=== PATIENT | male | born 1945 | race Caucasian/White ===

== ENCOUNTER 2017-11-29 11:54 | Inpatient (IN) | payer MEDICARE ==
[~2017-11-29] VITALS: Ht 177.8 cm; Wt 90.7 kg
[~2017-11-29 11:54] MED LIST: AMLO5TAB2 PO; ATOR10 PO; LOSA100T29 PO; METO50TA18 PO; TAMS0.4C32 PO
[2017-11-29] MEDS ORDERED: SODIUM CHLORIDE 0.9% 1000ML 1,000 ML IV ONE ×3 (12:25→15:24)
[2017-11-29] MEDS ORDERED: ONDANSETRON HCL 4 MG/2 ML VIAL ONE ×2 (12:26→13:25)
[2017-11-29] MEDS ORDERED: MORPHINE SULFATE 4 MG/1ML SYG ONE (12:27)
[2017-11-29 12:45] LABS: ALBUMIN 3.5 g/dL (3.5-5.0); BILIRUBIN,TOTAL 1.9 mg/dL (0.2-1.0); TOTAL PROTEIN, SERUM 6.9 g/dL (6.0-8.3)
[2017-11-29 13:01] LABS: BASOPHILS % (AUTO) 0.4 % (0.0-5.0); EOSINOPHILS % (AUTO) 0.2 % (0.0-8.0); HEMATOCRIT 44.9 % (42-54); LYMPHOCYTES % (AUTO) 2.2 % (21.0-51.0); MEAN CORPUSCULAR HEMOGLOBIN 28.1 pg (27.0-33.0); MEAN CORPUSCULAR HGB CONC 32.9 g/dL (32.0-36.0); MEAN CORPUSCULAR VOLUME 85.6 fL (79-99); NEUTROPHILS % (AUTO) 93.2 % (40.0-77.0); PLATELET COUNT (AUTO) 225 K/uL (130-400); RED BLOOD CELL COUNT(AUTO) 5.25 MIL/uL (4.50-6.20); RED CELL DISTRIBUTION WIDTH 14.6 % (11.0-15.5); WHITE BLOOD COUNT (AUTO) 11.6 K/uL (4.8-10.8)
[2017-11-29] MEDS ORDERED: HYDROMORPHONE HCL 2 MG/ML VIAL ONE (13:26)
[2017-11-29] MEDS ORDERED: ACETAMINOPHEN-CODEINE 300/30MG TAB PO PRN ×2 (15:00)
[2017-11-29] MEDS ORDERED: GUAIFENESIN-DM 200/20 MG 10 ML PO PRN (15:00)
[2017-11-29] MEDS ORDERED: HYDRALAZINE HCL 20 MG/ML VIAL IV PRN (15:00)
[2017-11-29] MEDS ORDERED: NITROGLYCERIN 0.4 MG SL TAB SL PRN (15:00)
[2017-11-29] MEDS: LEVOFLOXACIN 500 MG/D5W 100 ML 100 ML IV SCH (15:00)
[2017-11-29] MEDS ORDERED: ONDANSETRON HCL 4 MG/2 ML VIAL IV PRN (15:00)
[2017-11-29] MEDS ORDERED: MAG HYDROX/AL HYDROX/SIMETH ES 30 ML SUSP UDCUP PO PRN (15:00)
[2017-11-29] MEDS ORDERED: ACETAMINOPHEN 325 MG TAB PO PRN ×2 (15:00)
[2017-11-29 15:23] LABS: APPEARANCE,URINE Clear (CLEAR); BILIRUBIN,URINE Negative (NEGATIVE); COLOR,URINE Yellow (YELLOW); GLUCOSE, URINE (UA) Negative (NEGATIVE); KETONES,URINE Negative (NEGATIVE); LEUKOCYTE ESTERASE ,URINE Negative (NEGATIVE); NITRATE,URINE Negative (NEGATIVE); OCCULT BLOOD,URINE Negative (NEGATIVE); PROTEIN,URINE Negative (NEGATIVE)
[2017-11-29] MEDS ORDERED: LEVOFLOXACIN 500 MG/D5W 100 ML 100 ML ONE (15:25)
[2017-11-29 17:57] VITALS: BP 134/66
[2017-11-29] MEDS: SODIUM CHLORIDE 0.9% 1000ML 1,000 ML IV SCH ×2 (17:57→20:57)
[2017-11-29] MEDS ORDERED: METF-526 PO (18:49)
[2017-11-29] MEDS ORDERED: CARB-101 PO (18:49)
[2017-11-29] MEDS: FAMOTIDINE/PF 20 MG/2 ML VIAL IV SCH (19:55)
[2017-11-29] MEDS: MORPHINE SULFATE 4 MG/1ML SYG IV PRN (19:55)
[2017-11-29 20:01] VITALS: BP 129/64
[2017-11-29] MEDS: IPRATROPIUM/ALBUTEROL SULFATE 3 ML SOLUTION IH SCH (22:00)
[2017-11-30] VITALS: BP 123/59
[2017-11-30] MEDS: MORPHINE SULFATE 4 MG/1ML SYG IV PRN ×5 (02:04→19:59)
[2017-11-30 04:00] VITALS: BP 142/66
[2017-11-30] MEDS: SODIUM CHLORIDE 0.9% 1000ML 1,000 ML IV SCH ×3 (04:33→19:58)
[2017-11-30 04:57] LABS: HEMATOCRIT 37.8 % (42-54); MEAN CORPUSCULAR HEMOGLOBIN 29.8 pg (27.0-33.0); MEAN CORPUSCULAR HGB CONC 34.7 g/dL (32.0-36.0); MEAN CORPUSCULAR VOLUME 85.9 fL (79-99); PLATELET COUNT (AUTO) 209 K/uL (130-400); RED CELL DISTRIBUTION WIDTH 14.6 % (11.0-15.5); WHITE BLOOD COUNT (AUTO) 12.5 K/uL (4.8-10.8)
[2017-11-30 05:17] LABS: ALBUMIN 2.8 g/dL (3.5-5.0); CREATININE 0.9 mg/dL (0.5-1.5); POTASSIUM 3.6 mmol/L (3.5-5.1); TOTAL PROTEIN, SERUM 5.9 g/dL (6.0-8.3)
[2017-11-30] MEDS: IPRATROPIUM/ALBUTEROL SULFATE 3 ML SOLUTION IH SCH ×3 (06:19→22:06)
[2017-11-30] MEDS: CARBIDOPA-LEVODOPA 25-100 TAB PO SCH ×3 (06:48→16:54)
[2017-11-30 07:30] VITALS: BP 150/72
[2017-11-30] MEDS: FAMOTIDINE/PF 20 MG/2 ML VIAL IV SCH ×2 (08:44→19:57)
[2017-11-30] MEDS ORDERED: POTASSIUM CHLORIDE 20MEQ/100ML 100 ML IV PRN (10:00)
[2017-11-30] MEDS ORDERED: LIDOCAINE HCL-MPF 1% 2ML VIAL IVP PRN (10:00)
[2017-11-30] MEDS ORDERED: POTASSIUM CHLORIDE 10% ELIXIR 20 MEQ/15 ML UDCUP PO PRN (10:00)
[2017-11-30 11:00] VITALS: BP 145/71
[2017-11-30] MEDS: INSULIN HUMULIN R 100 UNIT/ML 3ML SQ SCH ×2 (11:30→21:00)
[2017-11-30] MEDS: POTASSIUM CHLORIDE 20 MEQ ERTAB PO PRN ×2 (11:43→15:40)
[2017-11-30] MEDS: LEVOFLOXACIN 500 MG/D5W 100 ML 100 ML IV SCH (15:07)
[2017-11-30 16:00] VITALS: BP 145/73
[2017-11-30] MEDS: METOPROLOL TARTRATE 50 MG TAB PO SCH (19:57)
[2017-11-30] MEDS: TAMSULOSIN HCL 0.4 MG CAP.ER.24H PO SCH (19:57)
[2017-11-30 20:25] VITALS: BP 134/64
[2017-12-01 00:07] VITALS: BP 147/74
[2017-12-01] MEDS: MORPHINE SULFATE 2 MG/ML 1ML SYG IV PRN ×4 (03:18→18:33)
[2017-12-01 04:33] LABS: HEMATOCRIT 36.7 % (42-54); MEAN CORPUSCULAR HEMOGLOBIN 29.1 pg (27.0-33.0); MEAN CORPUSCULAR VOLUME 85.6 fL (79-99); PLATELET COUNT (AUTO) 177 K/uL (130-400); RED BLOOD CELL COUNT(AUTO) 4.29 MIL/uL (4.50-6.20); RED CELL DISTRIBUTION WIDTH 15.1 % (11.0-15.5); WHITE BLOOD COUNT (AUTO) 10.2 K/uL (4.8-10.8)
[2017-12-01 04:39] VITALS: BP 165/70
[2017-12-01 04:44] LABS: ALBUMIN 2.4 g/dL (3.5-5.0); BILIRUBIN,DIRECT 0.3 mg/dL (0.0-0.3); BILIRUBIN,TOTAL 1.5 mg/dL (0.2-1.0); TOTAL PROTEIN, SERUM 5.5 g/dL (6.0-8.3)
[2017-12-01] MEDS: SODIUM CHLORIDE 0.9% 1000ML 1,000 ML IV SCH ×2 (05:35→17:02)
[2017-12-01] MEDS: INSULIN HUMULIN R 100 UNIT/ML 3ML SQ SCH ×4 (05:35→21:00)
[2017-12-01] MEDS: IPRATROPIUM/ALBUTEROL SULFATE 3 ML SOLUTION IH SCH ×3 (06:05→22:13)
[2017-12-01] MEDS: CARBIDOPA-LEVODOPA 25-100 TAB PO SCH ×3 (06:24→16:28)
[2017-12-01 07:48] VITALS: BP 146/78
[2017-12-01] MEDS: FAMOTIDINE/PF 20 MG/2 ML VIAL IV SCH ×2 (08:28→19:41)
[2017-12-01] MEDS: METOPROLOL TARTRATE 50 MG TAB PO SCH ×2 (08:28→19:41)
[2017-12-01] MEDS: AMLODIPINE BESYLATE 5 MG TAB PO SCH (08:28)
[2017-12-01] MEDS: TAMSULOSIN HCL 0.4 MG CAP.ER.24H PO SCH ×2 (08:28→19:41)
[2017-12-01] MEDS: POTASSIUM CHLORIDE 20 MEQ ERTAB PO PRN ×2 (08:28→12:47)
[2017-12-01] MEDS: ENOXAPARIN SODIUM 30 MG/0.3 ML SQ SCH (08:29)
[2017-12-01 09:46] LABS: CREATININE 0.8 mg/dL (0.5-1.5)
[2017-12-01 10:09] LABS: POTASSIUM 3.7 mmol/L (3.5-5.1)
[2017-12-01 12:00] VITALS: BP 145/73
[2017-12-01 12:34] LABS: AMYLASE 175 U/L (25-115)
[2017-12-01 12:35] LABS: LIPASE 337 U/L (114-286)
[2017-12-01] MEDS: LEVOFLOXACIN 500 MG/D5W 100 ML 100 ML IV SCH (14:17)
[2017-12-01 16:00] VITALS: BP 144/77
[2017-12-01] MEDS: LACTULOSE 20 GM/30 ML UDCUP PO PRN (18:47)
[2017-12-01 20:35] VITALS: BP 151/70
[2017-12-02] VITALS (7 sets, daily range): BP systolic 156–173; BP diastolic 66–77
[2017-12-02] MEDS: SODIUM CHLORIDE 0.9% 1000ML 1,000 ML IV SCH (03:18)
[2017-12-02] MEDS: MORPHINE SULFATE 2 MG/ML 1ML SYG IV PRN ×2 (03:45→11:17)
[2017-12-02] MEDS: IPRATROPIUM/ALBUTEROL SULFATE 3 ML SOLUTION IH SCH ×3 (05:09→21:35)
[2017-12-02 05:24] LABS: CREATININE 0.8 mg/dL (0.5-1.5); POTASSIUM 3.6 mmol/L (3.5-5.1)
[2017-12-02] MEDS: CARBIDOPA-LEVODOPA 25-100 TAB PO SCH ×3 (06:33→17:03)
[2017-12-02] MEDS: POTASSIUM CHLORIDE 20 MEQ ERTAB PO PRN ×2 (06:34→07:49)
[2017-12-02] MEDS: INSULIN HUMULIN R 100 UNIT/ML 3ML SQ SCH ×4 (06:34→21:00)
[2017-12-02] MEDS: FAMOTIDINE/PF 20 MG/2 ML VIAL IV SCH ×2 (07:49→20:03)
[2017-12-02] MEDS: TAMSULOSIN HCL 0.4 MG CAP.ER.24H PO SCH ×2 (07:49→20:02)
[2017-12-02] MEDS: METOPROLOL TARTRATE 50 MG TAB PO SCH ×2 (07:49→20:03)
[2017-12-02] MEDS: ENOXAPARIN SODIUM 30 MG/0.3 ML SQ SCH (07:51)
[2017-12-02] MEDS: AMLODIPINE BESYLATE 5 MG TAB PO SCH (07:52)
[2017-12-02] MEDS: LACTULOSE 20 GM/30 ML UDCUP PO PRN (17:04)
[2017-12-02] MEDS: LOSARTAN 100 MG TABLET PO SCH (20:02)
[2017-12-02] MEDS: ATORVASTATIN CALCIUM 10 MG TABLET PO SCH (20:02)
[2017-12-03] VITALS (25 sets, daily range): BP systolic 134–173; BP diastolic 55–83
[2017-12-03] MEDS: IPRATROPIUM/ALBUTEROL SULFATE 3 ML SOLUTION IH SCH ×3 (04:54→22:10)
[2017-12-03 05:07] LABS: BASOPHILS % (AUTO) 0.2 % (0.0-5.0); EOSINOPHILS % (AUTO) 1.2 % (0.0-8.0); HEMATOCRIT 38.6 % (42-54); LYMPHOCYTES % (AUTO) 3.9 % (21.0-51.0); MEAN CORPUSCULAR HEMOGLOBIN 28.9 pg (27.0-33.0); MEAN CORPUSCULAR HGB CONC 34.3 g/dL (32.0-36.0); MEAN CORPUSCULAR VOLUME 84.2 fL (79-99); MONOCYTES % (AUTO) 12.4 % (3.0-13.0); NEUTROPHILS % (AUTO) 82.3 % (40.0-77.0); PLATELET COUNT (AUTO) 200 K/uL (130-400); RED BLOOD CELL COUNT(AUTO) 4.58 MIL/uL (4.50-6.20); RED CELL DISTRIBUTION WIDTH 14.8 % (11.0-15.5); WHITE BLOOD COUNT (AUTO) 8.7 K/uL (4.8-10.8)
[2017-12-03 05:17] LABS: CREATININE 0.7 mg/dL (0.5-1.5); POTASSIUM 3.5 mmol/L (3.5-5.1)
[2017-12-03] MEDS: CARBIDOPA-LEVODOPA 25-100 TAB PO SCH ×3 (06:41→17:00)
[2017-12-03] MEDS: INSULIN HUMULIN R 100 UNIT/ML 3ML SQ SCH ×4 (06:42→21:00)
[2017-12-03] MEDS: METOPROLOL TARTRATE 50 MG TAB PO SCH ×2 (07:36→20:53)
[2017-12-03] MEDS: ENOXAPARIN SODIUM 30 MG/0.3 ML SQ SCH (08:04)
[2017-12-03] MEDS: FAMOTIDINE/PF 20 MG/2 ML VIAL IV SCH ×2 (09:00→20:53)
[2017-12-03] MEDS: TAMSULOSIN HCL 0.4 MG CAP.ER.24H PO SCH ×2 (09:00→20:53)
[2017-12-03] MEDS ORDERED: FENTANYL CITRATE PF 50 MCG/1 ML 2ML VIAL ONE (10:09)
[2017-12-03] MEDS: SODIUM CHLORIDE 0.9% 1000ML 1,000 ML IV SCH (10:53)
[2017-12-03] MEDS ORDERED: ACETAMINOPHEN-CODEINE 300/30MG TAB PO PRN (11:00)
[2017-12-03] MEDS ORDERED: MEPERIDINE-PF 50 MG/ML SYG ONE (11:09)
[2017-12-03] MEDS: AMLODIPINE BESYLATE 5 MG TAB PO SCH (13:59)
[2017-12-03] MEDS: ATORVASTATIN CALCIUM 10 MG TABLET PO SCH (20:53)
[2017-12-03] MEDS: LOSARTAN 100 MG TABLET PO SCH (20:53)
[2017-12-04] VITALS: BP 152/76
[2017-12-04 04:00] VITALS: BP 160/79
[2017-12-04] MEDS: IPRATROPIUM/ALBUTEROL SULFATE 3 ML SOLUTION IH SCH ×2 (06:07→13:12)
[2017-12-04] MEDS: INSULIN HUMULIN R 100 UNIT/ML 3ML SQ SCH ×2 (06:21→11:30)
[2017-12-04] MEDS: CARBIDOPA-LEVODOPA 25-100 TAB PO SCH ×2 (06:46→11:45)
[2017-12-04] MEDS: SODIUM CHLORIDE 0.9% 1000ML 1,000 ML IV SCH (06:52)
[2017-12-04 08:00] VITALS: BP 165/78
[2017-12-04] MEDS: FAMOTIDINE/PF 20 MG/2 ML VIAL IV SCH (08:35)
[2017-12-04] MEDS: AMLODIPINE BESYLATE 5 MG TAB PO SCH (08:35)
[2017-12-04] MEDS: METOPROLOL TARTRATE 50 MG TAB PO SCH (08:35)
[2017-12-04] MEDS: TAMSULOSIN HCL 0.4 MG CAP.ER.24H PO SCH (08:35)
[2017-12-04] MEDS: ENOXAPARIN SODIUM 30 MG/0.3 ML SQ SCH (08:38)
[2017-12-04] MEDS ORDERED: ACET1TAB12 PO (08:58)
[2017-12-04 09:55] LABS: APPEARANCE,URINE Clear (CLEAR); BILIRUBIN,URINE Negative (NEGATIVE); COLOR,URINE Yellow (YELLOW); GLUCOSE, URINE (UA) Negative (NEGATIVE); KETONES,URINE >=80 mg/dL (NEGATIVE); LEUKOCYTE ESTERASE ,URINE Moderate (NEGATIVE); NITRATE,URINE Negative (NEGATIVE); OCCULT BLOOD,URINE Negative (NEGATIVE); PH,URINE 5.5 (5.0-8.0); PROTEIN,URINE Negative (NEGATIVE)
[2017-12-04 10:18] LABS: RBC,URINE None Seen /HPF (0-1)
[2017-12-04 10:19] LABS: BACTERIA,URINE Few /HPF (None Seen); SQUAMOUS EPITHELIAL CELL,UR None Seen /LPF (0-2); WBC,URINE 26-50 /HPF (0-1)
[2017-12-04 11:00] VITALS: BP 160/79
== END 2017-12-04 15:42 | disposition home or self-care (01) | DRG 417 ==
LOC: EDH 11:54 → EDHIP 14:57 → 4CH 17:33 → 4BH 19:45 → UNDODISIN 12-01 08:30
PROVIDERS: ADMIT Internal Medicine; ATTEND Internal Medicine
PROC: 0FT44ZZ Resection of Gallbladder, Percutaneous Endoscopic Approach (ICD-10-PCS; principal; 2017-12-03 09:50)
DX: K80.10 Calculus of gallbladder with chronic cholecystitis without obstruction (principal); K85.10 Biliary acute pancreatitis without necrosis or infection; G20 Parkinson's disease; E11.9 Type 2 diabetes mellitus without complications; E78.5 Hyperlipidemia, unspecified; I10 Essential (primary) hypertension; N40.0 Benign prostatic hyperplasia without lower urinary tract symptoms; Z85.46 Personal history of malignant neoplasm of prostate; Z92.3 Personal history of irradiation
CPT/HCPCS: 36415; 71046; 74176; 76705; 80048; 80053; 80061; 80076; 81001; 81003; 82150; 82948; 83690; 85025; 85027; 88304; 93005; 94640; 94664; 97039; J1170; J1650; J1956; J2175; J2270; J2405; J3010; J3480; J3490; J7030